=== PATIENT | male | born 1990 | race African-American/Black ===

== ENCOUNTER → 2024-12-27 | Outpatient (CLI) | payer OTHER ==
[2024-12-27 15:11] LABS: GC DNA AMPLIFICATION NEGATIVE (NEGATIVE)
== END ==
LOC: M PLALAB 10:22
PROVIDERS: ATTEND Family Medicine
DX: R76.12 Nonspecific reaction to cell mediated immunity measurement of gamma interferon antigen response without active tuberculosis (principal); Z11.3 Encounter for screening for infections with a predominantly sexual mode of transmission

== ENCOUNTER 2025-04-23 12:10 | Emergency (ER) | payer OTHER ==
[~2025-04-23] VITALS: Ht 185.4 cm; Wt 104.6 kg
[2025-04-23] MEDS: IBUPROFEN 600 MG TAB PO ONE (16:00)
[2025-04-23 16:15] LABS: KETONE, URINE AUTO RFX NEGATIVE (NEGATIVE); LEUKOCYTE ESTERASE UR AUTO RFX NEGATIVE (NEGATIVE); MUCUS, URINE RFX SMALL (NEGATIVE); NITRITE, URINE AUTO RFX NEGATIVE (NEGATIVE); RBC, URINE AUTO RFX 0 /HPF (0-3); SQUAM EPITHELIAL CELL UR AURFX 0 /HPF (0-6); WBC, URINE AUTO RFX 1 /HPF (0-3)
[2025-04-23 16:15] LABS: BASO # 0.1 10^3/uL (0.0-0.2); BASO % 0.7 % (0.0-1.0); EOS # 0.1 10^3/uL (0.0-0.5); EOS % 0.9 % (0.0-3.0); LYMPH # 3.2 10^3/uL (1.5-5.0); LYMPH % 45.8 % (24.0-44.0); MONO # 0.6 10^3/uL (0.0-0.8); MONO % 8.3 % (2.0-8.0); NEUTROPHILS # 3.0 10^3/uL (1.5-8.5); NEUTROPHILS % 44.2 % (36.0-66.0); PLATELET COUNT, AUTOMATED 270 10^3/uL (150-450)
[2025-04-23 16:48] LABS: ALT/SGPT 30 U/L (7.0-40); AST/SGOT 26 U/L (<34); CALCIUM LEVEL 9.9 MG/DL (8.5-10.1); CARBON DIOXIDE LEVEL 29 MMOL/L (20-31); CHLORIDE LEVEL 104 MMOL/L (98-107); CREATININE FOR GFR 1.19 MG/DL (0.70-1.30); GLOMERULAR FILTRATION RATE 81.7 (>60); POTASSIUM SERUM 4.3 MMOL/L (3.5-5.1); SODIUM LEVEL 144 MMOL/L (136-145)
[2025-04-23] MEDS ORDERED: IBUP-1022 PO (17:53)
[2025-04-23] MEDS ORDERED: OMEP-173 PO (17:53)
[2025-04-23] MEDS ORDERED: ONDA-282 PO (17:53)
[2025-04-23 18:01] VITALS: BP 152/72; TEMP 97.6; O2SAT 97
== END 2025-04-23 18:06 | disposition home or self-care (01) ==
LOC: M ED 12:10
DX: K80.20 Calculus of gallbladder without cholecystitis without obstruction (principal); Z79.1 Long term (current) use of non-steroidal anti-inflammatories (NSAID); Z79.899 Other long term (current) drug therapy

== ENCOUNTER 2025-05-22 14:16 | Emergency (ER) | payer OTHER ==
[~2025-05-22] VITALS: Ht 185.4 cm; Wt 104.7 kg
[~2025-05-22 14:16] MED LIST: IBUP600T42 PO; OMEP-173 PO; ONDA-282 PO
[2025-05-22 14:52] LABS: BASO # 0.1 10^3/uL (0.0-0.2); BASO % 0.8 % (0.0-1.0); EOS # 0.1 10^3/uL (0.0-0.5); EOS % 0.9 % (0.0-3.0); LYMPH # 3.5 10^3/uL (1.5-5.0); LYMPH % 53.7 % (24.0-44.0); MONO # 0.5 10^3/uL (0.0-0.8); MONO % 7.9 % (2.0-8.0); NEUTROPHILS # 2.4 10^3/uL (1.5-8.5); NEUTROPHILS % 36.5 % (36.0-66.0); PLATELET COUNT, AUTOMATED 285 10^3/uL (150-450)
[2025-05-22 15:20] LABS: KETONE, URINE AUTO RFX NEGATIVE (NEGATIVE); LEUKOCYTE ESTERASE UR AUTO RFX NEGATIVE (NEGATIVE); NITRITE, URINE AUTO RFX NEGATIVE (NEGATIVE); RBC, URINE AUTO RFX 0 /HPF (0-3); SQUAM EPITHELIAL CELL UR AURFX 0 /HPF (0-6); WBC, URINE AUTO RFX 0 /HPF (0-3)
[2025-05-22 15:24] LABS: ALT/SGPT 29 U/L (7.0-40); AST/SGOT 34 U/L (<34); CALCIUM LEVEL 9.5 MG/DL (8.5-10.1); CARBON DIOXIDE LEVEL 30 MMOL/L (20-31); CHLORIDE LEVEL 105 MMOL/L (98-107); CREATININE FOR GFR 1.31 MG/DL (0.70-1.30); GLOMERULAR FILTRATION RATE 72.8 (>60); POTASSIUM SERUM 4.2 MMOL/L (3.5-5.1); SODIUM LEVEL 143 MMOL/L (136-145)
[2025-05-22] MEDS: NS (Normal Saline) 0.9% 1,000 ML IV ONE (16:50)
[2025-05-22] MEDS: ONDANSETRON 4MG 2ML VIAL IV ONE (16:51)
[2025-05-22] MEDS: MORPHINE 4 MG/ML 1 ML VIAL IV ONE (16:51)
[2025-05-22 19:00] VITALS: TEMP 96.8
[2025-05-22 19:15] VITALS: BP 129/85; O2SAT 99
== END 2025-05-22 19:21 | disposition home or self-care (01) ==
LOC: M ED 14:16
DX: K80.20 Calculus of gallbladder without cholecystitis without obstruction (principal); Z79.1 Long term (current) use of non-steroidal anti-inflammatories (NSAID); Z79.899 Other long term (current) drug therapy
CPT/HCPCS: 76705; 80048; 80076; 81001; 83690; 85025; 96361; 96374; 99284; J2405

== ENCOUNTER 2025-06-25 10:04 | Day surgery (SDC) | payer OTHER ==
[~2025-06-25] VITALS: Ht 185.4 cm; Wt 103.1 kg
[~2025-06-25 10:04] MED LIST changes: +INDOCYANINE GREEN 25 MG VIAL IV ONE
[2025-06-25] MEDS: LR 1,000 ML IV SCH (10:41)
[2025-06-25] MEDS ORDERED: dexAMETHasone 4 MG/ML 1 ML VIAL As Ordered ONE (11:06)
[2025-06-25] MEDS ORDERED: MIDAZOLAM INJ 2 MG/2 ML VIAL As Ordered ONE (11:06)
[2025-06-25] MEDS ORDERED: LIDOCAINE 2% 100 MG/5 ML SDV (FOR ANES.) As Ordered ONE (11:06)
[2025-06-25] MEDS ORDERED: ROCURONIUM BROMIDE 50MG/5ML VIAL As Ordered ONE (11:35)
[2025-06-25] MEDS ORDERED: dexmedeTOMIDine (4 MCG/ML) 200 MCG/50 ML BTL As Ordered ONE (12:10)
[2025-06-25] MEDS: ceFAZolin SOD 2 GM IV ONCE IV ONE (12:25)
[2025-06-25] MEDS: INDOCYANINE GREEN 25 MG VIAL As Ordered ONE (12:49)
[2025-06-25] MEDS: HEPARIN SOD 5000 UNITS/ML 1 ML VIAL/SYRINGE SQ SCH (12:50)
[2025-06-25] MEDS ORDERED: ONDANSETRON 4MG 2ML VIAL As Ordered ONE (13:05)
[2025-06-25] MEDS ORDERED: KETOROLAC 30 MG/ML 1 ML VIAL As Ordered ONE (13:05)
[2025-06-25] MEDS ORDERED: SUGAMMADEX SODIUM 500 MG/5 ML VIAL As Ordered ONE (13:20)
[2025-06-25] MEDS: MORPHINE 4 MG/ML 1 ML VIAL IV PRN (14:18)
[2025-06-25] MEDS: ONDANSETRON 4MG 2ML VIAL IV PRN (14:21)
[2025-06-25 16:25] VITALS: BP 126/79; TEMP 96.8; O2SAT 98
== END 2025-06-25 16:35 | disposition home or self-care (01) ==
LOC: M SDC 10:04
PROVIDERS: ATTEND Surgery
DX: K80.10 Calculus of gallbladder with chronic cholecystitis without obstruction (principal)
CPT/HCPCS: 47562; 88304; J0665; J0688; J1100; J1885; J2250; J2405; J3010; Q9968; S2900